=== PATIENT | male | born 1965 | race African-American/Black ===

== ENCOUNTER 2018-08-07 14:31 | Inpatient (IN) | payer MEDICAID ==
[~2018-08-07] VITALS: Ht 175.3 cm; Wt 65.8 kg
[2018-08-07 22:57] LABS: BASOPHILS % 1.3 % (0.0-2.0); EOSINOPHILS % 5.9 % (0.0-5.0); HEMATOCRIT. 48.2 % (42.0-52.0); HEMOGLOBIN. 16.1 g/dL (14.0-18.0); LYMPHOCYTES % 56.2 % (20.0-50.0); MEAN CORPUSCULAR HEMOGLOBIN 33.7 pg (28.0-32.0); MEAN CORPUSCULAR VOLUME 100.5 fL (80.0-94.0); MEAN PLATELET VOLUME 8.6 fl (7.4-10.4); MONOCYTES % 9.1 % (2.0-8.0); NEUTROPHILS % 27.5 % (40.0-76.0); PLATELET 271 x1000/uL (130-400); RED CELL DISTRIBUTION WIDTH 13.7 % (11.6-14.6)
[2018-08-07 22:58] LABS: CHLORIDE 104 mEq/L (98-107)
[2018-08-07 23:40] LABS: CLARITY URINE CLEAR (CLEAR); COLOR URINE DARK YELLOW (YELLOW); KETONES URINE 1+ (NEGATIVE); LEUKOCYTE ESTERASE URINE 1+ (NEGATIVE); NITRITE URINE NEGATIVE (NEGATIVE); OCCULT BLOOD URINE NEGATIVE (NEGATIVE); PH URINE 5.5 (4.5-8.0); PROTEIN URINE TRACE (NEGATIVE); SPECIFIC GRAVITY URINE 1.028 (1.005-1.030)
[2018-08-08] MEDS ORDERED: SODIUM CHLORIDE 0.9% 1,000 ML IV ONE (00:15)
[2018-08-08] MEDS ORDERED: IOHEXOL-300 100 ML BOTTLE ONE (01:58)
[2018-08-08 09:00] VITALS: BP 106/64
[2018-08-08] MEDS ORDERED: DOCUSATE SODIUM 100MG CAPSULE PO PRN (09:30)
[2018-08-08] MEDS ORDERED: ONDANSETRON HCL 4MG/2ML INJ IV PRN (09:30)
[2018-08-08] MEDS ORDERED: IPRATROPIUM/ALBUTEROL 0.5-3(2.5)MG/3ML NEB INH PRN (09:30)
[2018-08-08] MEDS ORDERED: ACETAMINOPHEN 325MG TABLET PO PRN (09:30)
[2018-08-08 10:42] VITALS: BP 106/64
[2018-08-08 12:00] VITALS: BP 90/61
[2018-08-08] MEDS: NICOTINE 14MG PATCH TD SCH (15:00)
[2018-08-08] MEDS: ASPIRIN 81MG TABLET PO SCH (15:46)
[2018-08-08 16:00] VITALS: BP 104/52
[2018-08-08 16:24] LABS: PHOSPHORUS 4.4 mg/dL (2.5-4.9)
[2018-08-08 16:25] LABS: *AMPHETAMINES SCREEN URINE NEGATIVE (NEGATIVE); *BARBITURATES SCREEN URINE NEGATIVE (NEGATIVE); *BENZODIAZEPINES SCREEN URINE NEGATIVE (NEGATIVE); *COCAINE SCREEN URINE PRESUMTIVE POSITIVE (NEGATIVE); CANNABINOID URINE SCREEN PRESUMTIVE POSITIVE (NEGATIVE); PHENCYCLIDINE URINE SCREEN PRESUMTIVE POSITIVE (NEGATIVE)
[2018-08-08 16:26] LABS: METHADONE URINE SCREEN NEGATIVE (NEGATIVE); OPIATES URINE SCREEN NEGATIVE (NEGATIVE)
[2018-08-08 20:00] VITALS: BP 100/48
[2018-08-08 20:25] LABS: ETHANOL BLOOD < 10 mg/dL
[2018-08-08 20:27] LABS: LDL CHOLESTEROL 64 mg/dL (5-100)
[2018-08-08 20:31] LABS: HDL CHOLESTEROL 62 mg/dL (40-59)
[2018-08-08] MEDS: SODIUM CHLORIDE 0.9% 1,000 ML IV SCH (20:42)
[2018-08-08 20:49] LABS: HEPATITIS B SURFACE ANTIGEN NEGATIVE
[2018-08-08 21:19] LABS: HEPATITIS A AB IGM NEGATIVE (NEGATIVE)
[2018-08-09] VITALS: BP 91/56
[2018-08-09 04:00] VITALS: BP 107/66
[2018-08-09 06:35] LABS: BASOPHILS % 1.3 % (0.0-2.0); EOSINOPHILS % 3.9 % (0.0-5.0); HEMATOCRIT. 45.7 % (42.0-52.0); HEMOGLOBIN. 15.3 g/dL (14.0-18.0); LYMPHOCYTES % 54.9 % (20.0-50.0); MEAN CORPUSCULAR HEMOGLOBIN 33.7 pg (28.0-32.0); MEAN CORPUSCULAR VOLUME 100.8 fL (80.0-94.0); MEAN PLATELET VOLUME 8.2 fl (7.4-10.4); MONOCYTES % 10.5 % (2.0-8.0); NEUTROPHILS % 29.4 % (40.0-76.0); PLATELET 247 x1000/uL (130-400); RED BLOOD CELL COUNT 4.54 mill/uL (4.7-6.1); RED CELL DISTRIBUTION WIDTH 13.7 % (11.6-14.6)
[2018-08-09 06:48] LABS: CHLORIDE 110 mEq/L (98-107)
[2018-08-09 08:00] VITALS: BP 97/55
[2018-08-09] MEDS: NICOTINE 14MG PATCH TD SCH (09:00)
[2018-08-09] MEDS: ASPIRIN 81MG TABLET PO SCH (09:13)
[2018-08-09 12:00] VITALS: BP 84/51
[2018-08-09] MEDS: SODIUM CHLORIDE 0.9% 1,000 ML IV SCH ×2 (12:18→23:07)
[2018-08-09 16:00] VITALS: BP 100/63
[2018-08-09 20:00] VITALS: BP 101/49
[2018-08-10 04:00] VITALS: BP 100/61
[2018-08-10 06:56] LABS: BASOPHILS % 0.8 % (0.0-2.0); EOSINOPHILS % 3.6 % (0.0-5.0); HEMATOCRIT. 44.2 % (42.0-52.0); HEMOGLOBIN. 14.7 g/dL (14.0-18.0); LYMPHOCYTES % 44.3 % (20.0-50.0); MEAN CORPUSCULAR HEMOGLOBIN 33.8 pg (28.0-32.0); MEAN CORPUSCULAR VOLUME 101.1 fL (80.0-94.0); MEAN PLATELET VOLUME 8.5 fl (7.4-10.4); MONOCYTES % 10.4 % (2.0-8.0); NEUTROPHILS % 40.9 % (40.0-76.0); PLATELET 236 x1000/uL (130-400); RED BLOOD CELL COUNT 4.37 mill/uL (4.7-6.1); RED CELL DISTRIBUTION WIDTH 13.5 % (11.6-14.6)
[2018-08-10 07:22] LABS: CHLORIDE 112 mEq/L (98-107)
[2018-08-10 08:00] VITALS: BP 96/59
[2018-08-10 08:22] LABS: HIV SCREEN 4G Non Reactive (Non Reactive)
[2018-08-10] MEDS: NICOTINE 14MG PATCH TD SCH (09:00)
[2018-08-10] MEDS: ASPIRIN 81MG TABLET PO SCH (09:16)
[2018-08-10] MEDS: SODIUM CHLORIDE 0.9% 1,000 ML IV SCH ×2 (09:17→23:28)
[2018-08-10 12:00] VITALS: BP 84/47
[2018-08-10] MEDS ORDERED: LOPERAMIDE HCL 2MG CAPSULE PO PRN (14:15)
[2018-08-10 16:00] VITALS: BP 123/69
[2018-08-10 20:00] VITALS: BP 96/51
[2018-08-11] VITALS: BP 99/54
[2018-08-11 04:00] VITALS: BP 99/52
[2018-08-11 06:20] LABS: QFT MITOGEN VALUE >10.00 IU/mL (.); QFT TB GOLD PLUS Positive (Negative); QFT TB1 AG VALUE 1.21 IU/mL (.)
[2018-08-11 08:00] VITALS: BP_SYST 147; BP_SYST 93; BP_DIAS 51; BP_DIAS 73
[2018-08-11] MEDS: ASPIRIN 81MG TABLET PO SCH (09:00)
[2018-08-11] MEDS: NICOTINE 14MG PATCH TD SCH (09:00)
[2018-08-11 12:00] VITALS: BP_SYST 87; BP_SYST 93; BP_DIAS 47; BP_DIAS 51
[2018-08-11] MEDS ORDERED: SODIUM CHLORIDE 0.9% 500 ML IV SCH (12:45)
[2018-08-11] MEDS: SODIUM CHLORIDE 0.9% 1,000 ML IV SCH (15:53)
[2018-08-11 16:00] VITALS: BP 93/51
[2018-08-11 16:43] VITALS: BP 93/51
[2018-08-11 17:09] LABS: OVA & PARASITE EXAM Final report (.)
== END 2018-08-11 17:30 | disposition home or self-care (01) | DRG 249 ==
LOC: ER 14:31 → 6EST 08-08 02:51 → ENRESERV 08-08 07:32 → 6EST 08-08 17:55
PROVIDERS: ADMIT Internal Medicine; ATTEND Internal Medicine
DX: A08.4 Viral intestinal infection, unspecified (principal); F12.10 Cannabis abuse, uncomplicated; F14.10 Cocaine abuse, uncomplicated; F17.200 Nicotine dependence, unspecified, uncomplicated; L60.3 Nail dystrophy; M79.671 Pain in right foot; R63.4 Abnormal weight loss; F19.10 Other psychoactive substance abuse, uncomplicated; M79.672 Pain in left foot; Z59.0 Homelessness; Z86.73 Personal history of transient ischemic attack (TIA), and cerebral infarction without residual deficits; Z71.6 Tobacco abuse counseling; Z68.21 Body mass index [BMI] 21.0-21.9, adult
CPT/HCPCS: 36415; 71045; 71250; 74177; 80048; 80061; 80305; 83036; 83615; 83735; 84100; 84145; 84443; 84484; 86480; 86705; 86709; 86803; 87177; 87209; 87340; 87389; 87493; 87804; 89055; 93005; 99285; G0482; J7030; Q9967

== ENCOUNTER 2020-02-10 00:12 | Emergency (ER) | payer MEDICAID ==
[~2020-02-10] VITALS: Ht 175.3 cm; Wt 75.0 kg
[2020-02-10 02:11] LABS: CHLORIDE 109 mEq/L (98-107)
[2020-02-10 02:12] LABS: BASOPHILS % 0.5 % (0.0-2.0); EOSINOPHILS % 1.8 % (0.0-5.0); HEMATOCRIT. 42.5 % (42.0-52.0); HEMOGLOBIN. 14.6 g/dL (14.0-18.0); LYMPHOCYTES % 25.3 % (20.0-50.0); MEAN CORPUSCULAR HEMOGLOBIN 33.8 pg (28.0-32.0); MEAN CORPUSCULAR VOLUME 98.1 fL (80.0-94.0); MONOCYTES % 7.7 % (2.0-8.0); NEUTROPHILS % 64.7 % (40.0-76.0); PLATELET 288 x1000/uL (130-400); RED BLOOD CELL COUNT 4.33 mill/uL (4.7-6.1); RED CELL DISTRIBUTION WIDTH 14.3 % (11.6-14.6)
[2020-02-10 02:37] LABS: CLARITY URINE CLOUDY (CLEAR); COLOR URINE YELLOW (YELLOW); KETONES URINE NEGATIVE (NEGATIVE); LEUKOCYTE ESTERASE URINE 2+ (NEGATIVE); NITRITE URINE POSITIVE (NEGATIVE); OCCULT BLOOD URINE 3+ (NEGATIVE); PH URINE 5.5 (4.5-8.0); PROTEIN URINE TRACE (NEGATIVE); UROBILINOGEN URINE 0.2 E.U./dL (0.2-1.0)
[2020-02-10] MEDS ORDERED: CEFTRIAXONE 1 G PREMIX 50 ML IV NR (03:00)
[2020-02-10] MEDS ORDERED: ONDANSETRON HCL 4MG/2ML INJ IV ONE (03:15)
[2020-02-10] MEDS ORDERED: KETOROLAC 30MG/ML VIAL IV ONE (03:15)
[2020-02-10] MEDS ORDERED: SODIUM CHLORIDE 0.9% 1,000 ML IV ONE (03:15)
[2020-02-10] MEDS ORDERED: MORPHINE SULFATE 2 MG/ML CPJ (NOT FOR IM USE) IV ONE (03:15)
[2020-02-10 07:04] VITALS: BP 114/76
== END 2020-02-10 07:13 | disposition home or self-care (01) ==
LOC: ER 00:12
DX: N39.0 Urinary tract infection, site not specified (principal); F17.290 Nicotine dependence, other tobacco product, uncomplicated; Z86.73 Personal history of transient ischemic attack (TIA), and cerebral infarction without residual deficits
CPT/HCPCS: 36415; 80053; 81003; 83880; 85025; 87077; 87086; 87186; 96365; 96375; 99285; J0696; J1885; J2270; J2405; J7030

== ENCOUNTER 2020-02-13 15:59 | Emergency (ER) | payer MEDICAID ==
[~2020-02-13] VITALS: Ht 177.8 cm; Wt 73.0 kg
[2020-02-13 16:12] VITALS: BP 117/70
[2020-02-13 18:48] LABS: CLARITY URINE CLEAR (CLEAR); COLOR URINE YELLOW (YELLOW); KETONES URINE NEGATIVE (NEGATIVE); LEUKOCYTE ESTERASE URINE 1+ (NEGATIVE); NITRITE URINE NEGATIVE (NEGATIVE); OCCULT BLOOD URINE NEGATIVE (NEGATIVE); PH URINE 5.5 (4.5-8.0); PROTEIN URINE NEGATIVE (NEGATIVE); SPECIFIC GRAVITY URINE 1.014 (1.005-1.030); UROBILINOGEN URINE 0.2 E.U./dL (0.2-1.0)
== END 2020-02-13 19:28 | disposition home or self-care (01) ==
LOC: ER 15:59
DX: R20.2 Paresthesia of skin (principal); L03.116 Cellulitis of left lower limb; L03.115 Cellulitis of right lower limb; F32.9 Major depressive disorder, single episode, unspecified; F20.9 Schizophrenia, unspecified; Z86.73 Personal history of transient ischemic attack (TIA), and cerebral infarction without residual deficits
CPT/HCPCS: 81003; 99283

== ENCOUNTER 2020-02-19 14:08 | Emergency (ER) | payer MEDICAID ==
[~2020-02-19] VITALS: Ht 175.3 cm; Wt 69.0 kg
[2020-02-19 15:27] LABS: CLARITY URINE CLEAR (CLEAR); COLOR URINE YELLOW (YELLOW); KETONES URINE NEGATIVE (NEGATIVE); LEUKOCYTE ESTERASE URINE 2+ (NEGATIVE); NITRITE URINE POSITIVE (NEGATIVE); OCCULT BLOOD URINE NEGATIVE (NEGATIVE); PROTEIN URINE NEGATIVE (NEGATIVE); SPECIFIC GRAVITY URINE 1.024 (1.005-1.030)
[2020-02-19] MEDS ORDERED: CEFTRIAXONE SODIUM 1 G/VIAL IM ONE (15:45)
[2020-02-19] MEDS ORDERED: LIDOCAINE HCL 1% 20ML VIAL (Pyxis) INJ INFIL ONE (15:45)
[2020-02-19 16:59] VITALS: BP 110/65
== END 2020-02-19 17:01 | disposition home or self-care (01) ==
LOC: ER 14:08
DX: N34.2 Other urethritis (principal); F12.10 Cannabis abuse, uncomplicated; F16.10 Hallucinogen abuse, uncomplicated
CPT/HCPCS: 81003; 87077; 87086; 87186; 96372; 99283; J0696; J3490

== ENCOUNTER 2020-02-21 11:04 | Emergency (ER) | payer MEDICAID ==
[~2020-02-21] VITALS: Ht 177.8 cm; Wt 73.0 kg
[2020-02-21 11:19] VITALS: BP 132/72
[2020-02-21] MEDS ORDERED: KETOROLAC 30MG/ML VIAL IM ONE (11:45)
== END 2020-02-21 13:00 | disposition home or self-care (01) ==
LOC: ER 11:04
DX: M79.672 Pain in left foot (principal); M79.671 Pain in right foot; G89.29 Other chronic pain; L84 Corns and callosities
CPT/HCPCS: 96372; 99283; J1885